=== PATIENT | female | born 1940 | race Caucasian/White ===

== ENCOUNTER 2018-09-21 10:55 | Outpatient (CLI) | payer MEDICARE, OTHER | END 2018-09-21 23:59 | disposition home or self-care (01) | LOC: CFH 10:55 | PROVIDERS: ATTEND Emergency Medicine | DX: Z12.31 Encounter for screening mammogram for malignant neoplasm of breast (principal); M81.0 Age-related osteoporosis without current pathological fracture; M48.07 Spinal stenosis, lumbosacral region; M23.91 Unspecified internal derangement of right knee | CPT/HCPCS: 77063; 77067; 77080 ==